=== PATIENT | male | born 1980 | race Two or more races ===

== ENCOUNTER 2017-04-17 12:49 | Emergency (ER) | payer MEDICAID ==
[~2017-04-17] VITALS: Ht 167.6 cm; Wt 77.1 kg
[2017-04-17 12:56] VITALS: BP 110/66
== END 2017-04-17 13:16 | disposition home or self-care (01) ==
LOC: ER 12:51
DX: J11.1 Influenza due to unidentified influenza virus with other respiratory manifestations (principal)
CPT/HCPCS: 99283; A4606; Z7610

== ENCOUNTER 2019-01-08 18:47 | Emergency (ER) | payer MEDICAID ==
[~2019-01-08] VITALS: Ht 165.1 cm; Wt 83.9 kg
--- NOTE | 2019-01-08 19:03 | NUR ---
CAME IN FOR COUGH AND CONGESTION, CHEST PAIN WHEN TAKING DEEP BREATHS X 2 WEEKS, TO ER BED 6, HOOKED TO MONITOR, CHANGED TO HOSP W, AWAITING MD ACOSTA,.
--- NOTE | 2019-01-08 19:10 | NUR ---
DANNI LI AT BEDSIDE
[2019-01-08] MEDS ORDERED: diphenhydrAMINE HCL 25 MG CAPSULE ONE (19:28)
[2019-01-08] MEDS ORDERED: predniSONE 20 MG TABLET ONE (19:29)
[2019-01-08] MEDS ORDERED: diphenhydrAMINE HCL 25 MG CAPSULE PO ONE (19:30)
[2019-01-08] MEDS ORDERED: predniSONE 20 MG TABLET PO ONE (19:30)
[2019-01-08] MEDS ORDERED: IPRATROPIUM NEB FS 0.5 MG/2.5 ML AMPUL.NEB NEB ONE (19:30)
[2019-01-08] MEDS ORDERED: ALBUTEROL FS 2.5 MG/3 ML VIAL.NEB NEB ONE (19:30)
[2019-01-08] MEDS ORDERED: ALBUTEROL FS 2.5 MG/3 ML VIAL.NEB ONE (19:31)
[2019-01-08] MEDS ORDERED: IPRATROPIUM NEB FS 0.5 MG/2.5 ML AMPUL.NEB ONE (19:31)
--- NOTE | 2019-01-08 19:32 | NUR ---
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
--- NOTE | 2019-01-08 19:36 | NUR ---
RT AT BEDSIDE FOR BREATHING TX
[2019-01-08 21:02] VITALS: BP 142/85
--- NOTE | 2019-01-08 21:02 | NUR ---
Patient discharged to home in stable condition. Written and verbal after care instructions given. Patient verbalizes understanding of instruction.
== END 2019-01-08 21:03 | disposition home or self-care (01) ==
LOC: ER 18:47
DX: J20.9 Acute bronchitis, unspecified (principal); R21 Rash and other nonspecific skin eruption
CPT/HCPCS: 71045; 94644; 99285; J7512; Q0163

== ENCOUNTER → 2022-06-17 | Emergency (ER) | payer MEDICAID ==
[~2022-06-17] VITALS: Ht 167.6 cm; Wt 86.2 kg
[~2022-06-17] MED LIST: LIDOCAINE HCL/PF 1% 30 ML VIAL TP ONE
[2022-06-17 14:04] VITALS: BP 126/71
--- NOTE | 2022-06-17 14:04 | NUR ---
BIBS FOR A WOUND CHECK, DENIES ANY PAIN HIMSELF WITH A BLADE, TDAP LAST RECEIVED 2-3 YEARS AGO
--- NOTE | 2022-06-17 15:41 | NUR ---
Patient discharged to home in stable condition. Written and verbal after care instructions given. Patient verbalizes understanding of instruction.
== END | disposition home or self-care (01) ==
LOC: ER 14:09
DX: S61.210A Laceration without foreign body of right index finger without damage to nail, initial encounter (principal); W26.0XXA Contact with knife, initial encounter; Y93.89 Activity, other specified; Y92.89 Other specified places as the place of occurrence of the external cause; Y99.8 Other external cause status

== ENCOUNTER 2022-06-27 13:47 | Emergency (ER) | payer MEDICAID ==
[~2022-06-27] VITALS: Ht 162.6 cm; Wt 81.6 kg
[2022-06-27 14:01] VITALS: BP 124/79
== END 2022-06-27 14:32 | disposition home or self-care (01) ==
LOC: ER 13:52
DX: S61.210D Laceration without foreign body of right index finger without damage to nail, subsequent encounter (principal); X58.XXXD Exposure to other specified factors, subsequent encounter